=== PATIENT | female | born 1930 | race Caucasian/White ===

== ENCOUNTER → 2018-06-11 | Outpatient (CLI) | payer OTHER, MEDICARE ==
[~2018-06-11] MED LIST: ACCUPRIL40 MG PO; ACID CONTROL20 MG PO; AMLODIPINE BESYL5 MG PO; ASPIR 8181 MG PO; ATIVAN0.5 MG PO; AUGMENTIN400 MG/53 PO; CHILDREN'S ASPI81 M1 PO; CLARITIN10 MG PO; EFFEXOR XR75 MG PO; EPIPEN 2-P0.3 MG/0.3 IM; EPIPEN0.3 MG/0.3 IM; FOLIC ACID1 MG PO; ISORDIL 5MG TABL5 MG PO; LEVOTHYROXIN0.025 MG PO; LEXAPRO 10 MG T10 M1 PO; LEXAPRO 10 MG T10 MG PO; LOPRESSOR25 PO; METRONIDAZOLE45 G1 TP; NOHOMEMEDICATIONS; NYAMYC15 GM TOP; POTASSIUM20 PO; PRIMSOL50 MG/5 ML PO; PROTONIX40 M1 PO; QUALAQUIN324 MG PO; SULFAMETHOXAZOLE5 ML PO; TRAMADOL 50 MG50 MG PO; ULTRAM 50MG TAB50 MG PO; VANCOCIN 125 M125 M1 PO; VITALEE TABLET0.4 MG PO; ZINC CHELATE50 MG PO
== END ==
LOC: RAD 11:19
DX: R07.9 Chest pain, unspecified (principal); R05 Cough